=== PATIENT | female | born 1970 | race African-American/Black ===

== ENCOUNTER 2020-04-06 06:19 | Outpatient (CLI) | payer BC, OTHER ==
[2020-04-06 19:43] LABS: SARS-CoV-2 MS2 Positive; SARS-CoV-2 N Gene Negative; SARS-CoV-2 S Gene Negative; SARS-CoV-2 by NAA Not Detected (NotDetected); SARS-CoV-2 orf1ab Negative
== END 2020-04-06 06:20 | disposition home or self-care (01) ==
LOC: LABBT 06:19
PROVIDERS: ATTEND Neurological Surgery
DX: G56.22 Lesion of ulnar nerve, left upper limb (principal); Z20.828 Contact with and (suspected) exposure to other viral communicable diseases
CPT/HCPCS: 87635; U0003

== ENCOUNTER 2020-04-11 06:49 | Day surgery (SDC) | payer BC, OTHER ==
[2020-04-06 14:51] VITALS: BMI 27.1
--- NOTE | 2020-04-10 22:50 | HP ---
HISTORY OF PRESENT ILLNESS: Ms. Baron is a very pleasant 49-year-old woman referred to us by her primary care physician for evaluation of left upper extremity. She developed pain and numbness associated with subjective weakness since December of this year. She reports that as of Thursday this week she has also started to have aggressive tingling in the right hand. She has never had this Effexor on a daily basis. She notes that when working more physically with her arms and hands she feels her symptoms more significantly. She reports the location of pain and discomfort is in her elbow, especially with direct pressure to the medial aspect of cubital tunnel. She denies any and all symptoms above the elbow and has no neck pain to speak of, symptoms unaffected by head position. She does have tingling and numbness around the ulnar aspect of the left forearm into the hand. An MRI performed at the [facility] of the cervical spine reveals multilevel [id number] degenerative disk disease with associated bilateral neural foraminal narrowing at varying degrees, moderate to worse throughout the cervical spine. Examination deferred for telehealth visit. PAST MEDICAL HISTORY: Chronic pain, hypercholesterolemia, depression, hypertension. PAST SURGICAL HISTORY: Ablation, unspecified location, cholecystectomy, hysterectomy. CURRENT MEDICATIONS: Amitriptyline, alprazolam, metoprolol . ALLERGIES: NO KNOWN DRUG ALLERGIES. ASSESSMENT: Left ulnar neuropathy. PLAN: Dr. Cedeño met with the patient, reviewed imaging, advocated for a left ulnar nerve decompression. He explained to the patient risks, benefits, and alternatives to the procedure. The patient expressed understanding and elected to move forward with sugary as discussed. I do believe the patient is competent and capable of making medical decisions for herself. We will move forward with surgery as planned. Job ID: [id number]
[2020-04-11] MEDS ORDERED: Fentanyl 100 MCG/2 ML VIAL ONE ×2 (07:49→08:42)
[2020-04-11] MEDS ORDERED: Levofloxacin 500 mg/D5W 100 ml Premix Bag ONE (07:49)
[2020-04-11] MEDS ORDERED: Clindamycin/D5W 900 mg/50 ml Premix Bag ONE (07:49)
[2020-04-11] MEDS ORDERED: Bupivacaine HCl 0.5%/Epinephrine 1:200,000/PF 30 ml Vial ONE (08:21)
[2020-04-11] MEDS ORDERED: Famotidine/PF 20 mg/2ml Vial ONE (08:52)
[2020-04-11] MEDS ORDERED: PROPOFOL 200 MG/20 ML VIAL ONE (09:38)
[2020-04-11] MEDS ORDERED: Ondansetron PF 4 MG/2 ML Vial ONE (09:38)
[2020-04-11] MEDS ORDERED: Lidocaine 1% PF 5 ML VIAL ONE (09:38)
[2020-04-11] MEDS ORDERED: Dexamethasone 20 MG/5 ML VIAL ONE (09:38)
[2020-04-11] MEDS ORDERED: Acetaminophen/Codeine 30-300mg Tablet ONE (10:55)
--- NOTE | 2020-04-11 12:18 | OP ---
DATE OF PROCEDURE: 04/11/2020 ROAST MASTER: Silvio Licea PA-C INDICATION: Pain. DIAGNOSIS: Left ulnar neuropathy. PROCEDURE PERFORMED: Left ulnar nerve decompression. ANESTHESIA: General. DESCRIPTION OF PROCEDURE: The patient was brought into the operating room and placed under general anesthesia. Her arm was prepped and draped up to the level of the axilla. A small curvilinear incision was planned across the left elbow along the long axis of the ulnar nerve. The area was infiltrated superficially with lidocaine. After an appropriate preoperative pause, the incision was created. The soft tissues were reflected away from midline. The ulnar nerve was identified and carefully dissected in proximal and distal directions until completed adhesiolysis was performed and that was free from compression. The wound was then irrigated. Hemostasis was maintained throughout. The wound was then closed in a single-layer technique. The procedure came to an end without complication. Job ID: [id number]
--- NOTE | 2020-04-12 07:14 | EKG ---
Test Reason : PREOP Blood Pressure : / mmHG Vent. Rate : 079 BPM Atrial Rate : 079 BPM P-R Int : 154 ms QRS Dur : 080 ms QT Int : 372 ms P-R-T Axes : 053 025 018 degrees QTc Int : 426 ms Normal sinus rhythm Normal ECG No previous ECGs available Confirmed by DR. Augusto DE LA TORRE ([id number]) on 04/12/2020 7:14:08 AM Referred By: ANNA Confirmed By:DR. Augusto DE LA TORRE
== END 2020-04-11 11:15 | disposition home or self-care (01) ==
LOC: SDC 06:49
PROVIDERS: ATTEND Neurological Surgery
PROC: 01N40ZZ Release Ulnar Nerve, Open Approach (ICD-10-PCS; principal; 2020-04-11)
DX: G56.22 Lesion of ulnar nerve, left upper limb (principal); I10 Essential (primary) hypertension; E78.00 Pure hypercholesterolemia, unspecified; F32.9 Major depressive disorder, single episode, unspecified; Z79.899 Other long term (current) drug therapy; Z88.0 Allergy status to penicillin
CPT/HCPCS: 93005; 93010; J1100; J1956; J2405; J2704; J3010; J3490; S0028

== ENCOUNTER 2020-12-11 10:49 | Outpatient (CLI) | payer BC, OTHER | END 2020-12-11 10:50 | disposition home or self-care (01) | LOC: BICMAMMO 10:49 | PROVIDERS: ATTEND Internal Medicine | DX: R92.8 Other abnormal and inconclusive findings on diagnostic imaging of breast (principal) | CPT/HCPCS: 77063; 77066; 77067; G0279 ==

== ENCOUNTER → 2020-12-18 | Day surgery (SDC) | payer BC, OTHER | LOC: BICULT 12:48 | PROVIDERS: ATTEND Internal Medicine | PROC: 0H9U0ZX Drainage of Left Breast, Open Approach, Diagnostic (ICD-10-PCS; principal; 2020-12-18) | DX: N63.20 Unspecified lump in the left breast, unspecified quadrant (principal); Z88.0 Allergy status to penicillin | CPT/HCPCS: 19083; 88305; 88341; 88342 ==

== ENCOUNTER 2021-02-18 19:11 | Emergency (ER) | payer BC, OTHER ==
[2021-02-18 19:31] LABS: #Basophils 0.1 thou/uL (0.0-0.2); #Lymphocytes 2.4 thou/uL (1.20-3.40); #Monocytes 0.7 thou/uL (0.11-0.59); #Neutrophils 8.5 thou/uL (1.40-6.50); %Basophils 0.5 % (0.0-1.0); %Eosinophils 0.3 % (0.0-10.0); %Lymphocytes 20.6 % (21.0-51.0); %Monocytes 6.3 % (0.0-10.0); %Neutrophils 72.3 % (42.0-75.0); Hemoglobin 16.3 g/dL (12.0-16.0); Mean Corpuscular HGB CONC 35.1 g/dL (32.0-36.0); Mean Corpuscular Hemoglobin 29.5 pg (27.0-31.0); Mean Corpuscular Volume 84.2 fL (78.0-98.0); Mean Platelet Volume 6.7 fL (7.4-10.4); Platelet Count 323 thou/uL (130-400); RBC Distribution Width 12.2 % (11.5-14.5); Red Blood Cell (RBC) Count 5.51 mill/uL (4.20-5.40); White Blood Cell (WBC) Count 11.7 thou/uL (4.8-10.8)
[2021-02-18 19:54] LABS: ALT (SGPT) 26 U/L (8-55); AST (SGOT) 18 U/L (5-34); Albumin 4.6 g/dL (3.5-5.0); Alkaline Phosphatase 87 U/L (40-110); Anion Gap 14 mmol/L (10-20); BUN (Urea Nitrogen) 12 mg/dL (9.8-20.1); Bilirubin, Total 0.5 mg/dL (0.2-1.2); Calc. Creatinine Clearance 0 mL/min (70-130); Calcium 10.3 mg/dL (7.8-10.44); Carbon Dioxide 23 mmol/L (22-29); Chloride 102 mmol/L (98-107); Globulin 3.7 g/dL (2.4-3.5); Glucose 106 mg/dL (70-105); Lipase 28 U/L (8-78); Potassium 3.9 mmol/L (3.5-5.1); Protein, Total 8.3 g/dL (6.0-8.3); Sodium 135 mmol/L (136-145)
== END 2021-02-18 21:10 | disposition home or self-care (01) ==
LOC: ERS 19:11
DX: F41.0 Panic disorder [episodic paroxysmal anxiety] (principal); Z79.899 Other long term (current) drug therapy; I10 Essential (primary) hypertension; F17.210 Nicotine dependence, cigarettes, uncomplicated
CPT/HCPCS: 36415; 71045; 80053; 83690; 84484; 85025; 93005

== ENCOUNTER 2023-02-16 10:06 | Outpatient (CLI) | payer OTHER | END 2023-02-16 10:07 | disposition home or self-care (01) | LOC: BICMAMMO 10:06 | PROVIDERS: ATTEND Internal Medicine | DX: Z12.31 Encounter for screening mammogram for malignant neoplasm of breast (principal) | CPT/HCPCS: 77067 ==

== ENCOUNTER 2025-03-20 14:59 | Outpatient (CLI) | payer BC, OTHER | END 2025-03-20 15:00 | disposition home or self-care (01) | LOC: BICMAMMO 14:59 | PROVIDERS: ATTEND Family Medicine | DX: Z12.31 Encounter for screening mammogram for malignant neoplasm of breast (principal); Z91.89 Other specified personal risk factors, not elsewhere classified | CPT/HCPCS: 77063; 77067 ==